=== PATIENT | male | born 1945 | race Caucasian/White ===

== ENCOUNTER → 2019-03-23 14:52 | Outpatient (BNVA) | payer MEDICARE, OTHER, SELFPAY | PROVIDERS: Referring Provider Urology; Visit Provider Nurse Practitioner Gerontology | DX: N35.919 Unspecified urethral stricture, male, unspecified site (principal); C61 Malignant neoplasm of prostate | CPT/HCPCS: 36415; 52000; 81003; 99203; 84153 ==

== ENCOUNTER 2019-03-23 15:43 | Outpatient (CLI) | payer MEDICARE, OTHER, SELFPAY ==
[2019-03-25 12:49] LABS: PSA, Diagnostic <0.1 ng/ml (0-6.5)
== END 2019-03-23 16:03 ==
PROVIDERS: PCP Family Medicine; Visit Provider Urology
DX: C61 Malignant neoplasm of prostate (principal)
CPT/HCPCS: 36415; 84153

== ENCOUNTER → 2019-07-30 14:10 | Outpatient (BNVA) | payer MEDICARE, OTHER, SELFPAY | PROVIDERS: PCP Family Medicine; Visit Provider Urology | DX: N35.919 Unspecified urethral stricture, male, unspecified site (principal); C61 Malignant neoplasm of prostate | CPT/HCPCS: 52000; 99213 ==